=== PATIENT | male | born 1980 | race Caucasian/White ===

== ENCOUNTER 2020-12-30 12:11 | Emergency (ER) | payer SELFPAY ==
[~2020-12-30] VITALS: Ht 182 cm; Wt 70.0 kg
--- NOTE | 2020-12-30 12:34 | ED General ---
General Chief Complaint: Neurological Problems Stated Complaint: SEIZURE X3 TODAY,ALC DETOX Nursing Triage Note: PT SITTING ON WAITING ROOM FLOOR ROCKING BACK AND FORTH. SMELLS OF ETOH. FRIEND STATES HE HAS HAS A COUPLE OF SIEZURES TODAY AND HAS BEEN DRINKING LAST NIGHT. PT STATES HE HAS NOT DRANK FOR 3.5 YEARS. Nursing Sepsis Screen: No Definite Risk Source of Information: Patient Exam Limitations: No Limitations History of Present Illness Date Seen by Provider: Dec 30, 2020 Time Seen by Provider: 12:10 Initial Comments This is a 40-year-old male who presents to the ER with complaints of seizures after excessive alcohol intake. Reports taking oxcarbazepine daily until he abruptly stopped 1 month ago, stating it was making him feel ill. He is a recovering alcoholic and has been sober for the past 3.5 years. States he relapsed yesterday for unknown causes. He believes he had 2 seizures last night, because they induce severe pain. States his seizures cause him to have intense generalized pain, but no LOC, or loss of bowel/bladder function. Additionally he reports left sided neck pain and left flank pain. He denies any medical problems. Denies fever, chills, cough, shortness of breath, nausea/vomiting/diarrhea, dysuria or hematuria. Allergies and Home Medications Allergies Coded Allergies: No Allergy Information Available (Unverified , 12/30/20) PT STATES HE IS ALLERGIC TO THINGS BUT DOES NOT KNOW WHAT. Home Medications Oxcarbazepine 600 Mg Tablet, 600 MG PO DAILY Prescribed by: BLAISE GELLER on 12/30/20 1179 Patient Home Medication List Home Medication List Reviewed: Yes Review of Systems Review of Systems Constitutional: see HPI EENTM: see HPI Respiratory: no symptoms reported Cardiovascular: no symptoms reported Gastrointestinal: see HPI Genitourinary: no symptoms reported Musculoskeletal: no symptoms reported Skin: no symptoms reported Psychiatric/Neurological: See HPI Hematologic/Lymphatic: No Symptoms Reported Immunological/Allergic: no symptoms reported Past Yshnaar-Okenzy-Dheykh Hx Patient Social History Alcohol Use: Rarely Uses Smoking Status: Current Everyday Smoker Recent Infectious Disease Expo: No Recent Hopitalizations: No Seasonal Allergies Seasonal Allergies: No Past Medical History Surgeries: Yes (EARS) Respiratory: No Cardiac: No Neurological: Yes Seizure Disorder Genitourinary: No Gastrointestinal: No Musculoskeletal: No Endocrine: Yes (HYPOGLYCEMIA) Cancer: No Psychosocial: No Physical Exam Vital Signs Vital Signs - First Documented 12/30/20 12:11 Temp 37.0 Pulse 124 Resp 16 B/P (MAP) 113/88 (96) Pulse Ox 97 O2 Delivery Room Air Capillary Refill : Less Than 3 Seconds Height, Weight, BMI Height: '" Weight: lbs. oz. kg; 21.00 BMI Method: General Appearance: No Apparent Distress, WD/WN, Anxious Eyes: Bilateral Eye Normal Inspection, Bilateral Eye PERRL, Bilateral Eye EOMI HEENT: PERRL/EOMI, TMs Normal, Normal ENT Inspection, Pharynx Normal, Moist Mucous Membranes Neck: Full Range of Motion, Normal Inspection, Tender Lateral (lateral ) Respiratory: Chest Non Tender, Lungs Clear, Normal Breath Sounds Cardiovascular: Regular Rate, Rhythm, No Murmur, Normal Peripheral Pulses Gastrointestinal: Normal Bowel Sounds, Soft, Other (left flank tenderness) Back: Normal Inspection Extremity: Normal Capillary Refill, Normal Inspection, Normal Range of Motion Neurologic/Psychiatric: Alert, Oriented x3, No Motor/Sensory Deficits, Disoriented Skin: Normal Color, Warm/Dry Progress/Results/Core Measures Suspected Sepsis Recent Fever Within 48 Hours: No Infection Criteria Present: None New/Unexplained Altered Menta: No Sepsis Screen: No Definite Risk SIRS Temperature: Pulse: 124 Respiratory Rate: 16 Laboratory Tests 12/30/20 12:30: White Blood Count 13.7H Blood Pressure 113 /88 Mean: 96 Laboratory Tests 12/30/20 12:30: Creatinine 1.21, Platelet Count 320, Total Bilirubin 0.3 Results/Orders Lab Results Laboratory Tests Test 12/30/20 12:30 12/30/20 12:45 Range/Units White Blood Count 13.7 H 4.3-11.0 10^3/uL Red Blood Count 5.17 4.30-5.52 10^6/uL Hemoglobin 14.8 13.3-17.7 g/dL Hematocrit 44 40-54 % Mean Corpuscular Volume 85 80-99 fL Mean Corpuscular Hemoglobin 29 25-34 pg Mean Corpuscular Hemoglobin Concent 34 32-36 g/dL Red Cell Distribution Width 13.3 10.0-14.5 % Platelet Count 320 130-400 10^3/uL Mean Platelet Volume 10.0 9.0-12.2 fL Immature Granulocyte % (Auto) 0 % Neutrophils (%) (Auto) 71 42-75 % Lymphocytes (%) (Auto) 22 12-44 % Monocytes (%) (Auto) 6 0-12 % Eosinophils (%) (Auto) 0 0-10 % Basophils (%) (Auto) 0 0-10 % Neutrophils # (Auto) 9.8 H 1.8-7.8 10^3/uL Lymphocytes # (Auto) 3.1 1.0-4.0 10^3/uL Monocytes # (Auto) 0.8 0.0-1.0 10^3/uL Eosinophils # (Auto) 0.0 0.0-0.3 10^3/uL Basophils # (Auto) 0.0 0.0-0.1 10^3/uL Immature Granulocyte # (Auto) 0.0 0.0-0.1 10^3/uL Sodium Level 142 135-145 MMOL/L Potassium Level 3.6 3.6-5.0 MMOL/L Chloride Level 103 98-107 MMOL/L Carbon Dioxide Level 21 21-32 MMOL/L Anion Gap 18 H 5-14 MMOL/L Blood Urea Nitrogen 13 7-18 MG/DL Creatinine 1.21 0.60-1.30 MG/DL Estimat Glomerular Filtration Rate > 60 BUN/Creatinine Ratio 11 Glucose Level 137 H 70-105 MG/DL Calcium Level 8.9 8.5-10.1 MG/DL Corrected Calcium 8.5-10.1 MG/DL Total Bilirubin 0.3 0.1-1.0 MG/DL Aspartate Amino Transf (AST/SGOT) 19 5-34 U/L Alanine Aminotransferase (ALT/SGPT) 20 0-55 U/L Alkaline Phosphatase 63 40-136 U/L Total Protein 7.7 6.4-8.2 GM/DL Albumin 4.8 H 3.2-4.5 GM/DL Salicylates Level < 5.0 L 5.0-20.0 MG/DL Acetaminophen Level < 10 L 10-30 UG/ML Serum Alcohol 268 H <10 MG/DL Urine Color YELLOW Urine Clarity SL CLOUDY Urine pH 6.0 5-9 Urine Specific Stout 1.020 1.016-1.022 Urine Protein NEGATIVE NEGATIVE Urine Glucose (UA) NEGATIVE NEGATIVE Urine Ketones TRACE H NEGATIVE Urine Nitrite NEGATIVE NEGATIVE Urine Bilirubin NEGATIVE NEGATIVE Urine Urobilinogen 0.2 < = 1.0 MG/DL Urine Leukocyte Esterase NEGATIVE NEGATIVE Urine RBC (Auto) NEGATIVE NEGATIVE Urine RBC RARE /HPF Urine WBC RARE /HPF Urine Crystals PRESENT H /LPF Urine Amorphous Sediment RARE OC URATES H /LPF Urine Bacteria NEGATIVE /HPF Urine Casts NONE /LPF Urine Mucus SMALL H /LPF Urine Culture Indicated NO Urine Opiates Screen NEGATIVE NEGATIVE Urine Oxycodone Screen NEGATIVE NEGATIVE Urine Methadone Screen NEGATIVE NEGATIVE Urine Propoxyphene Screen NEGATIVE NEGATIVE Urine Barbiturates Screen NEGATIVE NEGATIVE Ur Tricyclic Antidepressants Screen NEGATIVE NEGATIVE Urine Phencyclidine Screen NEGATIVE NEGATIVE Urine Amphetamines Screen NEGATIVE NEGATIVE Urine Methamphetamines Screen NEGATIVE NEGATIVE Urine Benzodiazepines Screen NEGATIVE NEGATIVE Urine Cocaine Screen NEGATIVE NEGATIVE Urine Cannabinoids Screen NEGATIVE NEGATIVE My Orders Orders - BLAISE GELLER DEATH CLAIM EXAMINER Ct Abd/Pelvis Wo(Kidney Stone) (12/30/20 12:34) Ua Culture If Indicated (12/30/20 12:34) Cbc With Automated Diff (12/30/20 12:34) Comprehensive Metabolic Panel (12/30/20 12:34) Alcohol (12/30/20 12:34) Drug Screen Stat (Urine) (12/30/20 12:34) Acetaminophen (12/30/20 12:34) Salicylate (12/30/20 12:34) Ekg Tracing (12/30/20 12:34) Monitor-Rhythm Ecg Trace Only (12/30/20 12:34) Ns Iv 1000 Ml (Sodium Chloride 0.9%) (12/30/20 12:45) Ketorolac Injection (Toradol Injection) (12/30/20 13:00) Ketorolac Injection (Toradol Injection) (12/30/20 13:15) Lactated Ringers (Lr 1000 Ml Iv Solution (12/30/20 13:30) Medications Given in ED Current Medications Medications Dose Ordered Sig/Socrates Route Start Time Stop Time Status Last Admin Dose Admin Ketorolac Tromethamine 30 mg ONCE ONCE IVP 12/30/20 13:15 12/30/20 13:16 DC 12/30/20 13:15 30 MG Lactated Ringer's 1,000 ml @ 0 mls/hr Q0M ONCE IV 12/30/20 13:30 12/30/20 13:31 DC 12/30/20 13:55 1,000 MLS/HR Vital Signs/I&O 12/30/20 12/30/20 12:11 14:58 Temp 37.0 37.0 Pulse 124 93 Resp 16 16 B/P (MAP) 113/88 (96) 120/76 (96) Pulse Ox 97 97 O2 Delivery Room Air Capillary Refill : Less Than 3 Seconds Blood Pressure Mean: 96 Progress Note : Progress Note Pt. examined and in no acute distress. Gave verbal permission to discuss his medical care with his friend Tasha. Called his friend Tasha who reports patient has a history of bipolar and anxiety. States she was on the phone with the patient last night when he experienced his two episodes of "seizures". States he told her he was sitting on couch because he could feel the pain coming on, was off the phone briefly and she heard him yell, and then he came back to the conversation right after. To her knowledge he has not fallen or had any loss of consciousness during the episode. States the [facility] is willing to couch him for the evening to help ensure he has no issues. Orders placed for NS bolus, basic labs, ETOH and drug screen, as well as CT abd/pelvis w/o to r/o kidney stone. Labs reviewed and are unremarkable other than elevated ETOH 268. Orders placed for Toradol for pain. He is resting comfortably. CT abd/pelvis shows no acute pathology. Orders placed for LR. Called [facility] mental health and left message for his primary care provider regarding his medication management. Will prescribe his Oxcarbazepine at 600mg daily and he is to followup with his PCP for further management. After completing 2 liters fluids he states he is ready to discharge. Declined staying at [facility] at this time and called friend for ride. Reviewed discharge instructions and he is agreeable with plan. ECG Initial ECG Impression Date: Dec 30, 2020 Initial ECG Impression Time: 10:20 Initial ECG Rate: 102 Diagnostic Imaging Diagonstic Imaging: CT Plain Films/CT/US/NM/MRI: abdomen, pelvis Comments NAME: CY DALAL Kelsey MED REC#: [id number] PT STATUS: REG ER : 1980 PHYSICIAN: BLAISE GELLER DEATH CLAIM EXAMINER ADMIT DATE: 12/30/20/ER Draft Date of Exam:12/30/20 CT ABD/PELVIS WO(KIDNEY STONE) PROCEDURE: CT urinary tract, rule out kidney stone. TECHNIQUE: Multiple contiguous axial images were obtained through the abdomen and pelvis without the use of intravenous contrast. Auto Exposure Controls were utilized during the CT exam to meet ALARA standards for radiation dose reduction. DATE: December 30, 2020. COMPARISON: None. INDICATION: 40-year-old male, left flank pain. FINDINGS: There are limitations for evaluation of the abdominal organs, neoplastic processes, abscess, and limited evaluation of the vasculature relating to the lack of intravenous contrast. The visualized portions of the lungs are clear. The heart is not enlarged. There is no pericardial effusion. The liver is unremarkable in size and contour. The gallbladder is unremarkable. There is no intrahepatic or extrahepatic bile duct dilation. The main pancreatic duct is not abnormally dilated. Limited noncontrast evaluation of the pancreatic parenchyma is unremarkable. The spleen is normal in size. The adrenal glands are unremarkable. Limited noncontrast evaluation of the renal parenchyma is unremarkable. The urinary collecting systems are not distended. There is no identified renal or ureteral stone. The urinary bladder is unremarkable. The intestinal tract is not distended. There is no evidence of acute appendicitis. There is no free intraperitoneal air. There is no drainable fluid collection. There is no free pelvic fluid. There is no abnormally enlarged lymph node in the abdomen or pelvis meeting CT size criteria for adenopathy. There is no identified acute bony abnormality. IMPRESSION: CT ABDOMEN AND PELVIS. 1. No identified acute abnormality in the abdomen or pelvis. Dictated on workstation # [id number] Dict: 12/30/20 1314 Trans: 12/30/20 1330 [facility] [id number] Interpreted by: PADDY WELLER MD Electronically signed by: Reviewed: Reviewed by Me Departure Impression Primary Impression: Alcohol intoxication Disposition: 01 HOME, SELF-CARE Condition: Improved Departure-Patient Inst. Decision time for Depature: 14:47 Patient Instructions: Alcohol Abuse and Alcoholism (DC), Seizures, Adult (DC) Add. Discharge Instructions: Plan: 1. Discharge home with friends. 2. Prescription for Oxcarbazepine 600mg daily provided. Follow up with your provider to adjust dosage and monitor. 3. DO NOT DRINK ALCOHOL. 4. Return to ER for any new or concerning symptoms. All discharge instructions reviewed with patient and/or family. Voiced understanding. Scripts Oxcarbazepine (Oxcarbazepine) 600 Mg Tablet 600 MG PO DAILY for 14 Days, #14 TAB 0 Refills Prov: BLAISE GELLER APRN 12/30/20 BLAISE GELLER APRN Dec 30, 2020 12:34
[2020-12-30 12:42] LABS: BASOPHILS % (AUTO) 0 % (0-10); EOSINOPHILS % (AUTO) 0 % (0-10); HEMATOCRIT 44 % (40-54); HEMOGLOBIN 14.8 g/dL (13.3-17.7); LYMPHOCYTES # (AUTO) 3.1 10^3/uL (1.0-4.0); LYMPHOCYTES % (AUTO) 22 % (12-44); MEAN CORPUSCULAR HEMOGLOBIN 29 pg (25-34); MEAN CORPUSCULAR HGB CONC 34 g/dL (32-36); MEAN CORPUSCULAR VOLUME 85 fL (80-99); MONOCYTES # (AUTO) 0.8 10^3/uL (0.0-1.0); MONOCYTES % (AUTO) 6 % (0-12); NEUTROPHILS # (AUTO) 9.8 10^3/uL (1.8-7.8); NEUTROPHILS % (AUTO) 71 % (42-75); PLATELET COUNT 320 10^3/uL (130-400); WHITE BLOOD COUNT 13.7 10^3/uL (4.3-11.0)
[2020-12-30] MEDS ORDERED: NS IV 1000 ML 1,000 ML IV SCH (12:45)
[2020-12-30 12:47] LABS: CHLORIDE 103 MMOL/L (98-107); POTASSIUM 3.6 MMOL/L (3.6-5.0); SODIUM 142 MMOL/L (135-145)
[2020-12-30 12:48] LABS: ALBUMIN 4.8 GM/DL (3.2-4.5)
[2020-12-30 12:49] LABS: CALCIUM 8.9 MG/DL (8.5-10.1)
[2020-12-30 12:50] LABS: GLUCOSE 137 MG/DL (70-105)
[2020-12-30 12:51] LABS: CARBON DIOXIDE 21 MMOL/L (21-32); TOTAL PROTEIN 7.7 GM/DL (6.4-8.2)
[2020-12-30 12:52] LABS: BILIRUBIN,TOTAL 0.3 MG/DL (0.1-1.0)
[2020-12-30 12:54] LABS: ALKALINE PHOSPHATASE 63 U/L (40-136); CREATININE SERUM 1.21 MG/DL (0.60-1.30); GFR ESTIMATED > 60
[2020-12-30 12:55] LABS: BUN/CREATININE RATIO 11
[2020-12-30 12:56] LABS: BILIRUBIN,URINE NEGATIVE (NEGATIVE); CLARITY,URINE SL CLOUDY; COLOR,URINE YELLOW; GLUCOSE, URINE (UA) NEGATIVE (NEGATIVE); KETONES,URINE TRACE (NEGATIVE); LEUKOCYTE ESTERASE ,URINE NEGATIVE (NEGATIVE); NITRITE,URINE NEGATIVE (NEGATIVE); PROTEIN,URINE NEGATIVE (NEGATIVE)
[2020-12-30 12:57] LABS: ALANINE AMINOTRANSFERASE 20 U/L (0-55); SALICYLATE < 5.0 MG/DL (5.0-20.0)
[2020-12-30] MEDS ORDERED: KETOROLAC 15 MG/ML VIAL IVP ONE (13:00)
[2020-12-30 13:05] LABS: ACETAMINOPHEN < 10 UG/ML (10-30)
[2020-12-30 13:11] LABS: AMORPHOUS SEDIMENT,UR RARE AMOR URATES /LPF; BACTERIA,URINE NEGATIVE /HPF; RBC,URINE RARE /HPF; WBC,URINE RARE /HPF
[2020-12-30 13:12] LABS: AMPHETAMINE SCREEN, URINE NEGATIVE (NEGATIVE); BENZODIAZEPINES SCREEN URINE NEGATIVE (NEGATIVE); CANNABINOID SCREEN, URINE NEGATIVE (NEGATIVE); COCAINE SCREEN URINE NEGATIVE (NEGATIVE); METHAMPHETAMINE SCREEN URINE S NEGATIVE (NEGATIVE)
[2020-12-30 13:13] LABS: BARBITURATE SCREEN URINE NEGATIVE (NEGATIVE); METHADONE STAT NEGATIVE (NEGATIVE); OPIATE SCREEN URINE NEGATIVE (NEGATIVE); OXYCODONE STAT NEGATIVE (NEGATIVE); PROPOXYPHENE STAT NEGATIVE (NEGATIVE); TRICYCLIC ANTIDEPRESSANTS SCRE NEGATIVE (NEGATIVE)
[2020-12-30] MEDS ORDERED: KETOROLAC 30 MG/ML VIAL IVP ONE (13:15)
[2020-12-30] MEDS ORDERED: LACTATED RINGERS 1,000 ML IV ONE (13:30)
--- NOTE | 2020-12-30 13:31 | Diagnostic Imaging Report ---
PROCEDURE: CT urinary tract, rule out kidney stone. TECHNIQUE: Multiple contiguous axial images were obtained through the abdomen and pelvis without the use of intravenous contrast. Auto Exposure Controls were utilized during the CT exam to meet ALARA standards for radiation dose reduction. DATE: December 30, 2020. COMPARISON: None. INDICATION: 40-year-old male, left flank pain. FINDINGS: There are limitations for evaluation of the abdominal organs, neoplastic processes, abscess, and limited evaluation of the vasculature relating to the lack of intravenous contrast. The visualized portions of the lungs are clear. The heart is not enlarged. There is no pericardial effusion. The liver is unremarkable in size and contour. The gallbladder is unremarkable. There is no intrahepatic or extrahepatic bile duct dilation. The main pancreatic duct is not abnormally dilated. Limited noncontrast evaluation of the pancreatic parenchyma is unremarkable. The spleen is normal in size. The adrenal glands are unremarkable. Limited noncontrast evaluation of the renal parenchyma is unremarkable. The urinary collecting systems are not distended. There is no identified renal or ureteral stone. The urinary bladder is unremarkable. The intestinal tract is not distended. There is no evidence of acute appendicitis. There is no free intraperitoneal air. There is no drainable fluid collection. There is no free pelvic fluid. There is no abnormally enlarged lymph node in the abdomen or pelvis meeting CT size criteria for adenopathy. There is no identified acute bony abnormality. IMPRESSION: CT ABDOMEN AND PELVIS. 1. No identified acute abnormality in the abdomen or pelvis. Dictated by: Dictated on workstation # [id number]
[2020-12-30] MEDS ORDERED: OXCA600T10 PO (14:49)
[2020-12-30 14:58] VITALS: BP 120/76
== END 2020-12-30 14:58 | disposition home or self-care (01) ==
LOC: ER 12:15
DX: F10.129 Alcohol abuse with intoxication, unspecified (principal); F41.9 Anxiety disorder, unspecified; G40.909 Epilepsy, unspecified, not intractable, without status epilepticus; F17.200 Nicotine dependence, unspecified, uncomplicated
CPT/HCPCS: 74176; 80053; 80306; 81000; 85025; G0480 ×3; 36415; 80320; 80329; 93005

== ENCOUNTER 2021-04-01 22:04 | Emergency (ER) | payer SELFPAY ==
[~2021-04-01 22:04] MED LIST: OXCA600T10 PO
[2021-04-01 22:24] LABS: BASOPHILS # (AUTO) 0.1 10^3/uL (0.0-0.1); BASOPHILS % (AUTO) 1 % (0-10); EOSINOPHILS # (AUTO) 0.2 10^3/uL (0.0-0.3); EOSINOPHILS % (AUTO) 1 % (0-10); HEMATOCRIT 45 % (40-54); HEMOGLOBIN 15.1 g/dL (13.3-17.7); LYMPHOCYTES % (AUTO) 32 % (12-44); MEAN CORPUSCULAR HEMOGLOBIN 29 pg (25-34); MEAN CORPUSCULAR HGB CONC 34 g/dL (32-36); MEAN CORPUSCULAR VOLUME 87 fL (80-99); MEAN PLATELET VOLUME 9.2 fL (9.0-12.2); MONOCYTES # (AUTO) 0.7 10^3/uL (0.0-1.0); MONOCYTES % (AUTO) 6 % (0-12); NEUTROPHILS # (AUTO) 7.4 10^3/uL (1.8-7.8); NEUTROPHILS % (AUTO) 60 % (42-75); PLATELET COUNT 339 10^3/uL (130-400); WHITE BLOOD COUNT 12.4 10^3/uL (4.3-11.0)
[2021-04-01] MEDS ORDERED: ONDANSETRON 4 MG/2 ML (SDV) Z0FRAN IVP ONE (22:30)
[2021-04-01] MEDS ORDERED: FAMOTIDINE 20MG/2ML IV (PEPCID) IVP ONE (22:30)
[2021-04-01] MEDS ORDERED: NS IV 1000 ML 1,000 ML IV SCH (22:30)
[2021-04-01 22:35] LABS: ALBUMIN 4.5 GM/DL (3.2-4.5); CHLORIDE 103 MMOL/L (98-107); SODIUM 142 MMOL/L (135-145)
[2021-04-01 22:37] LABS: CALCIUM 9.2 MG/DL (8.5-10.1)
[2021-04-01 22:38] LABS: GLUCOSE 84 MG/DL (70-105); TOTAL PROTEIN 7.3 GM/DL (6.4-8.2)
[2021-04-01 22:39] LABS: CARBON DIOXIDE 22 MMOL/L (21-32)
[2021-04-01 22:40] LABS: BILIRUBIN,TOTAL 0.3 MG/DL (0.1-1.0)
[2021-04-01 22:42] LABS: ALKALINE PHOSPHATASE 75 U/L (40-136); CREATININE SERUM 0.99 MG/DL (0.60-1.30); GFR ESTIMATED > 60
[2021-04-01 22:43] LABS: BUN/CREATININE RATIO 7
[2021-04-01 22:45] LABS: ACETAMINOPHEN < 10 UG/ML (10-30); ALANINE AMINOTRANSFERASE 30 U/L (0-55); SALICYLATE < 5.0 MG/DL (5.0-20.0)
[2021-04-02 00:26] LABS: BILIRUBIN,URINE NEGATIVE (NEGATIVE); CLARITY,URINE CLEAR; COLOR,URINE YELLOW; GLUCOSE, URINE (UA) NEGATIVE (NEGATIVE); KETONES,URINE NEGATIVE (NEGATIVE); LEUKOCYTE ESTERASE ,URINE NEGATIVE (NEGATIVE); NITRITE,URINE NEGATIVE (NEGATIVE); PROTEIN,URINE NEGATIVE (NEGATIVE)
[2021-04-02 00:38] LABS: AMPHETAMINE SCREEN, URINE NEGATIVE (NEGATIVE); BARBITURATE SCREEN URINE NEGATIVE (NEGATIVE); BENZODIAZEPINES SCREEN URINE NEGATIVE (NEGATIVE); CANNABINOID SCREEN, URINE NEGATIVE (NEGATIVE); COCAINE SCREEN URINE NEGATIVE (NEGATIVE); METHADONE STAT NEGATIVE (NEGATIVE); METHAMPHETAMINE SCREEN URINE S NEGATIVE (NEGATIVE); OPIATE SCREEN URINE NEGATIVE (NEGATIVE); OXYCODONE STAT NEGATIVE (NEGATIVE); PROPOXYPHENE STAT NEGATIVE (NEGATIVE); TRICYCLIC ANTIDEPRESSANTS SCRE NEGATIVE (NEGATIVE)
[2021-04-02 00:45] LABS: BACTERIA,URINE NEGATIVE /HPF
[2021-04-02] MEDS ORDERED: ACHD5005 PO (04:07)
--- NOTE | 2021-04-02 04:08 | ED Psychosocial ---
General Chief Complaint: Psych/Social Disorder Stated Complaint: OD Source: patient Exam Limitations: no limitations History of Present Illness Date Seen by Provider: April 01, 2021 Time Seen by Provider: 22:06 Initial Comments This 40-year-old man presents to the emergency room via EMS after reportedly self activating EMS. The initial call to EMS when out for a possible overdose of hydrocodone. On scene patient reported taking multiple doses of oxcarbazepine. On my interview patient states he only drank alcohol but did not take any excess medication. 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 Each identity gives a little different history and this confuses the clinical presentation. For example, when he is speaking as Olga, he states that Morgan is . Patient also complains of right foot pain where he has contusion near the 5th toe and abrasion between the 4th and 5th toes. Patient later reported that he had not taken his oxcarbazepine for the past 2 days and drank alcohol as an alternative. He acknowledges he needs to get back on his prescribed medication. Patient denied any homicidal or suicidal ideology. Allergies and Home Medications Allergies Coded Allergies: No Allergy Information Available (Unverified , 12/30/20) PT STATES HE IS ALLERGIC TO THINGS BUT DOES NOT KNOW WHAT. Home Medications Hydrocodone/Acetaminophen 1 Each Tablet, 1 TAB PO Q6H PRN for PAIN-MODERATE (5- 7) Prescribed by: ASHER VITAL on 04/02/21 0408 Oxcarbazepine 600 Mg Tablet, 600 MG PO DAILY Prescribed by: BLAISE GELLER on 12/30/20 1449 Patient Home Medication List Home Medication List Reviewed: Yes Review of Systems Constitutional: other (appears intoxicated) EENTM: no symptoms reported Respiratory: no symptoms reported Cardiovascular: no symptoms reported Gastrointestinal: nausea Genitourinary: no symptoms reported Musculoskeletal: no symptoms reported Skin: see HPI Psychiatric/Neurological: See HPI Past [id number] Hx Past Med/Social Hx: Reviewed Nursing Past Med/Soc Hx Patient Social History Alcohol Use: Past History Type Used: Electronic/Vapor Recent Hopitalizations: No Seasonal Allergies Seasonal Allergies: No Past Medical History Surgeries: Yes (EARS) Respiratory: No Cardiac: No Neurological: Yes Seizure Disorder Genitourinary: No Gastrointestinal: No Musculoskeletal: No Endocrine: Yes (HYPOGLYCEMIA) HEENT: No Cancer: No Psychosocial: Yes (Dissociative identity disorder, substance abuse) Bipolar Physical Exam Vital Signs - First Documented 04/01/21 04/02/21 22:10 04:25 Temp 36.7 Pulse 99 Resp 16 B/P (MAP) 122/79 (93) Pulse Ox 95 O2 Delivery Room Air Capillary Refill : Height, Weight, BMI Height: '" Weight: lbs. oz. kg; 21.00 BMI Method: General Appearance: WD/WN, mild distress, other (appears intoxicated) HEENT: PERRL/EOMI, normal ENT inspection Neck: normal inspection Respiratory: lungs clear, normal breath sounds, no respiratory distress Cardiovascular: regular rate, rhythm, no edema, no murmur Gastrointestinal: normal bowel sounds, non tender, soft Extremities: no pedal edema, other (Tenderness over the distal lateral right foot with ecchymosis on the plantar surface and the fifth toe. Abrasion between the fourth and fifth toes.) Neurologic/Psychiatric: circuits engineer II-XII nml as tested, no motor/sensory deficits, alert, other (Appears intoxicated. Appears to have no focal deficits. Identifies as 4 separate individuals.) Appearance/Memory: disheveled Behavior/Eye Contact: cooperative, avoids eye contact Skin: normal color, warm/dry, ecchymosis Progress/Results/Core Measures Results/Orders Lab Results Laboratory Tests Test 04/01/21 00:19 04/01/21 22:15 04/02/21 03:00 Range/Units Urine Color YELLOW Urine Clarity CLEAR Urine pH 6.0 5-9 Urine Specific [place] <=1.005 1.016-1.022 Urine Protein NEGATIVE NEGATIVE Urine Glucose (UA) NEGATIVE NEGATIVE Urine Ketones NEGATIVE NEGATIVE Urine Nitrite NEGATIVE NEGATIVE Urine Bilirubin NEGATIVE NEGATIVE Urine Urobilinogen 0.2 < = 1.0 MG/DL Urine Leukocyte Esterase NEGATIVE NEGATIVE Urine RBC (Auto) NEGATIVE NEGATIVE Urine RBC NONE /HPF Urine WBC NONE /HPF Urine Squamous Epithelial Cells NONE /HPF Urine Renal Epithelial Cells NONE /HPF Urine Crystals NONE /LPF Urine Bacteria NEGATIVE /HPF Urine Casts NONE /LPF Urine Mucus NEGATIVE /LPF Urine Culture Indicated NO Urine Opiates Screen NEGATIVE NEGATIVE Urine Oxycodone Screen NEGATIVE NEGATIVE Urine Methadone Screen NEGATIVE NEGATIVE Urine Propoxyphene Screen NEGATIVE NEGATIVE Urine Barbiturates Screen NEGATIVE NEGATIVE Ur Tricyclic Antidepressants Screen NEGATIVE NEGATIVE Urine Phencyclidine Screen NEGATIVE NEGATIVE Urine Amphetamines Screen NEGATIVE NEGATIVE Urine Methamphetamines Screen NEGATIVE NEGATIVE Urine Benzodiazepines Screen NEGATIVE NEGATIVE Urine Cocaine Screen NEGATIVE NEGATIVE Urine Cannabinoids Screen NEGATIVE NEGATIVE White Blood Count 12.4 H 4.3-11.0 10^3/uL Red Blood Count 5.18 4.30-5.52 10^6/uL Hemoglobin 15.1 13.3-17.7 g/dL Hematocrit 45 40-54 % Mean Corpuscular Volume 87 80-99 fL Mean Corpuscular Hemoglobin 29 25-34 pg Mean Corpuscular Hemoglobin Concent 34 32-36 g/dL Red Cell Distribution Width 14.2 10.0-14.5 % Platelet Count 339 130-400 10^3/uL Mean Platelet Volume 9.2 9.0-12.2 fL Immature Granulocyte % (Auto) 0 % Neutrophils (%) (Auto) 60 42-75 % Lymphocytes (%) (Auto) 32 12-44 % Monocytes (%) (Auto) 6 0-12 % Eosinophils (%) (Auto) 1 0-10 % Basophils (%) (Auto) 1 0-10 % Neutrophils # (Auto) 7.4 1.8-7.8 10^3/uL Lymphocytes # (Auto) 4.0 1.0-4.0 10^3/uL Monocytes # (Auto) 0.7 0.0-1.0 10^3/uL Eosinophils # (Auto) 0.2 0.0-0.3 10^3/uL Basophils # (Auto) 0.1 0.0-0.1 10^3/uL Immature Granulocyte # (Auto) 0.0 0.0-0.1 10^3/uL Sodium Level 142 135-145 MMOL/L Potassium Level 4.0 3.6-5.0 MMOL/L Chloride Level 103 98-107 MMOL/L Carbon Dioxide Level 22 21-32 MMOL/L Anion Gap 17 H 5-14 MMOL/L Blood Urea Nitrogen 7 7-18 MG/DL Creatinine 0.99 0.60-1.30 MG/DL Estimat Glomerular Filtration Rate > 60 BUN/Creatinine Ratio 7 Glucose Level 84 70-105 MG/DL Calcium Level 9.2 8.5-10.1 MG/DL Corrected Calcium 8.8 8.5-10.1 MG/DL Total Bilirubin 0.3 0.1-1.0 MG/DL Aspartate Amino Transf (AST/SGOT) 25 5-34 U/L Alanine Aminotransferase (ALT/SGPT) 30 0-55 U/L Alkaline Phosphatase 75 40-136 U/L Total Protein 7.3 6.4-8.2 GM/DL Albumin 4.5 3.2-4.5 GM/DL TSH [place] Testing 0.44 0.35-4.94 UIU/ML Salicylates Level < 5.0 L 5.0-20.0 MG/DL Acetaminophen Level < 10 L < 10 L 10-30 UG/ML Serum Alcohol 354 *H <10 MG/DL My Orders Orders - ASHER INGRAM MD Ua Culture If Indicated (04/01/21 22:17) Cbc With Automated Diff (04/01/21:17) Comprehensive Metabolic Panel (04/01/21 22:17) Alcohol (04/01/21 22:17) Drug Screen Stat (Urine) (04/01/21 22:17) Acetaminophen (04/01/21 22:17) Salicylate (04/01/21 22:17) Ekg Tracing (04/01/21 22:17) Ed Iv/Invasive Line Start (04/01/21 22:17) Thyroid Analyzer (04/01/21 22:17) Monitor-Rhythm Ecg Trace Only (04/01/21:17) Bh Status Checks/Observation Q15M (04/01/21 22:17) Ed Iv/Invasive Line Start (04/01/21 22:17) Ns Iv 1000 Ml (Sodium Chloride 0.9%) (04/01/21 22:30) Ondansetron Injection (Zofran Injectio (04/01/21 22:30) Famotidine Injection (Pepcid Injection) (04/01/21 22:30) Foot, Right, 3 View (04/01/21 22:32) Acetaminophen (04/02/21 01:45) Steplite (04/02/21 03:57) Crutches (04/02/21 03:57) Medications Given in ED Vital Signs/I&O Progress Progress Note : Progress Note GI symptoms were treated with Pepcid and Zofran. He was hydrated with a liter of IV fluid. He was allowed time to sober which resolved his psychiatric complaints. He denied any suicidal or homicidal ideation. After sobering, he denied taking any additional medications or other illicit substances which correlated well with his labs and urine drug screen. A 4-hour Tylenol level was undetectable. He was noted to have fractures of the third and fourth metatarsals. He was placed in a stoplight boot and provided with crutches. He was given instructions not to bear weight on the right foot. He declined pain medication. Patient did acknowledge that he needs to be taking his prescribed psychiatric medications rather than drinking alcohol. Initial ECG Impression Date: April 01, 2021 Initial ECG Impression Time: 22:49 Initial ECG Rate: 86 Initial ECG Rhythm: Normal Sinus Initial ECG Intervals: Normal Initial ECG Impression: Normal Comment Normal sinus rhythm with no ST elevation or depression. No abnormal intervals or axis deviation. Diagnostic Imaging Diagonstic Imaging: Xray Plain Films/CT/US/NM/MRI: other (right foot) Comments X-ray of the right foot viewed by me. Report not yet available. There appear to be fractures of the distal third and fourth metatarsals. No other acute injuries identified by my interpretation. Departure Impression Primary Impression: Alcohol intoxication Qualified Codes: F10.921 - Alcohol use, unspecified with intoxication delirium Additional Impression: Foot fracture Qualified Codes: S92.901A - Unspecified fracture of right foot, initial encounter for closed fracture Disposition: 01 HOME, SELF-CARE Condition: Improved Departure-Patient Inst. Referrals: BEATRIZ OJEDA MD UNKNOWN (PCP) Primary Care Physician SALINA GARZA MD Patient Instructions: Foot Fracture ED Add. Discharge Instructions: Keep your foot in the boot as much as possible and do not bear weight on your foot. Follow-up with an orthopedic provider as soon as possible. Please call tomorrow to arrange follow-up. Information for Dr. Garza and Dr. Ojeda is below. Use your medication as prescribed. Icing in 20-minute intervals and elevating may help with pain and swelling. Call with questions or concerns. Return to care if you have worsening symptoms. All discharge instructions reviewed with patient and/or family. Voiced understanding. Scripts Hydrocodone/Acetaminophen (Hydrocodone-Acetamin 5-325 mg) 1 Each Tablet 1 TAB PO Q6H PRN for PAIN-MODERATE (5-7), #10 TAB Prov: ASHER INGRAM MD 04/02/21 Copy Copies To 1: KATHLEEN CAMP JOSHUA T MD April 02, 2021 04:08
[2021-04-02 04:25] VITALS: BP 99/67
--- NOTE | 2021-04-02 07:15 | Diagnostic Imaging Report ---
INDICATION: foot pain. TECHNIQUE: 3 views of the right foot CORRELATION STUDY: None FINDINGS: There is abnormal gas over the 4th and 5th toes. No definitive foreign body. There is deformity at the 3rd and 4th metatarsal heads appearing to represent mildly displaced fractures. Remaining osseous structures otherwise intact. IMPRESSION: 1. Deformity at the 3rd and 4th metatarsals suggestive of underlying fracture. 2. Abnormal gas over the 4th and 5th toes. No definitive foreign body. Dictated by: Dictated on workstation # [id number]
== END 2021-04-02 04:28 | disposition home or self-care (01) ==
LOC: EDUNIT# 22:04 → ER 22:06
DX: S92.331A Displaced fracture of third metatarsal bone, right foot, initial encounter for closed fracture (principal); S92.341A Displaced fracture of fourth metatarsal bone, right foot, initial encounter for closed fracture; F10.929 Alcohol use, unspecified with intoxication, unspecified; G40.909 Epilepsy, unspecified, not intractable, without status epilepticus; F44.81 Dissociative identity disorder; F31.9 Bipolar disorder, unspecified; Y90.8 Blood alcohol level of 240 mg/100 ml or more; Z79.899 Other long term (current) drug therapy; X58.XXXA Exposure to other specified factors, initial encounter
CPT/HCPCS: 73630; 80053; 80306; 81000; 84443; 85025; 93005; 93041; 99284; G0480 ×4; 36415; 80320; 80329